=== PATIENT | female | born 1965 | race Caucasian/White ===

== ENCOUNTER 2016-07-04 13:06 | Emergency (ER) | payer BC ==
--- NOTE | 2016-07-04 16:14 | UC ---
Skin Complaint HPI - HPI Summary HPI Summary: pt presents with c/o of possible abscess on left distal dorsal side of foot. ~ 2 cm in diameter. 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 Denies injury or trauma. Pt has wound vac for bed sore obtained during recent hospitalization. Pt has liver failure secondary to ETOH cirrhosis. - History of Current Complaint Time Seen by Provider: 07/04/16 16:01 Stated Complaint: LEFT FOOT ABCESS Hx Obtained From: Patient Hx Last Menstrual Period: now ?: No Onset/Duration: Gradual Onset, Lasting Days Skin Exposure Onset/Duration: Days Ago Timing: Constant Onset Severity: Mild Current Severity: Mild Location: Discrete - left foot distal dorsal Character: Swelling, Redness, Raised Aggravating: Other - unable to feel pain in feet, neuropathy Alleviating: Nothing Associated Signs & Symptoms: Positive: Bruising - Allergy/Home Medications Allergies/Adverse Reactions: Allergies Allergy/AdvReac Type Severity Reaction Status Date / Time No Known Allergies Allergy Verified 07/04/16 16:22 Home Medications: Home Medications Folic Acid TAB* [Folvite TAB*] 1 mg PO BID 07/04/16 [History Confirmed 07/04/16] Furosemide TAB* [Lasix TAB*] 20 mg PO BID 07/04/16 [History Confirmed 07/04/16] Lactulose* 30 ml PO BID 07/04/16 [History Confirmed 07/04/16] Magnesium [Magnesium] 400 mg PO DAILY 07/04/16 [History Confirmed 07/04/16] RiFAXimin* [Xifaxan*] 550 mg PO BID 07/04/16 [History Confirmed 07/04/16] Spironolactone 50 mg PO DAILY 07/04/16 [History Confirmed 07/04/16] Tabavite 1 tab DAILY 07/04/16 [History] Review of Systems Constitutional: Negative Skin: Bruising, Other - edema, erytham, palpable "lump" Eyes: Negative ENT: Negative Respiratory: Negative Cardiovascular: Negative Gastrointestinal: Other - has cirrhosis Genitourinary: Negative Motor: Weakness - secondary to liver failure Neurovascular: Negative Musculoskeletal: Negative Neurological: Weakness, Other - neuropathy bilateral lower extremities from knee to toes, and neuropathy from elbows to finger tips Psychological: Negative All Other Systems Reviewed And Are Negative: Yes PMH/Surg Hx/FS Hx/Imm Hx Previously Healthy: No - liver failur Endocrine History Of: Denies: Diabetes, Thyroid Disease, Hyperthyroidism, Hypothyroidism, Dyslipidemia Cardiovascular History Of: Denies: Cardiac Disorders, Hypertension, Pacemaker/ICD, Myocardial Infarction , Congestive Heart Failure, Atrial Fibrillation, Deep Vein Thrombosis, Bleeding Disorders Respiratory History Of: Denies: COPD, Asthma, Bronchitis, Pneumonia, Pulmonary Embolism GI/ History Of: Denies: Gastroesophageal Reflux, Ulcer, Gastrointestinal Bleed, Gall Bladder Disease, Kidney Stones, Diverticulitis, Renal Disease, Urosepsis Neurological History Of: Denies: TIA, CVA, Dementia, Seizures, Migraine Psychological History Of: Reports: Anxiety, Depression Denies: Bipolar Disorder, Schizophrenia, Post Traumatic Stress Disorder Cancer History Of: Denies: Lung Cancer, Colorectal Cancer, Breast Cancer, Prostate Cancer, Cervical Cancer Other History Of: Negative For: HIV, Hepatitis B, Hepatitis C - Surgical History Surgical History: Yes Surgery Procedure, Year, and Place: rt hand surgery with plate 1997. L knee open repair age [id number]. Ectopic and appy 1989. eye at 1971(muscle surgery). L foot tumor 1981. tonsilectomy 1973. right hand surgery approx 1999 has plate in hand - Family History Known Family History: Negative: Cardiac Disease, Hypertension, Diabetes - Social History Lives: With Family Alcohol Use: None Substance Use Type: None Smoking Status (MU): Light Every Day Tobacco Smoker Type: Cigarettes Amount Used/How Often: less then 1/4 ppd - Immunization History Most Recent Tetanus Shot: Pt. states appros. six months ago (2016), through Asya Nuñez, her PCP. Physical Exam Triage Information Reviewed: Yes Appearance: Ill-Appearing, Thin Eye Exam: Normal ENT Exam: Normal Neck exam: Normal Respiratory: Positive: No respiratory distress Abdomen Description: Positive: Other: - pt has wound vac attached for bed sore obtrained during hospitalization previous to urgent care visit Musculoskeletal Exam: Normal Neurological Exam: Other Neurological: Positive: Other: - bialteral neuropathy in upper and lower extremities Psychological Exam: Normal - history of depression Skin Exam: Other - left dorsal side of foot. bruising, moveable soft, nontender mass. exam is limited secondary to history of neuropathy Course/Dx - Differential Diagnoses - Skin Complaint Differential Diagnoses: Abscess, MRSA, Other - contusion - Diagnoses Provider Diagnoses: abscess. contusion Discharge - Discharge Plan Condition: Stable Disposition: HOME Prescriptions: Cephalexin CAP* [Keflex 500 CAP*] 500 mg PO Q12H #14 cap Patient Education Materials: Foot Contusion (ED), Abscess (ED) Referrals: Caden CASTANO,Anh [Primary Care Provider] -
[2016-07-04 16:29] VITALS: BP 105/64
== END 2016-07-04 16:30 | disposition home or self-care (01) ==
LOC: UCCORT 13:06
DX: L02.612 Cutaneous abscess of left foot (principal); S90.32XA Contusion of left foot, initial encounter; X58.XXXA Exposure to other specified factors, initial encounter; Y93.9 Activity, unspecified; Y92.9 Unspecified place or not applicable; G62.9 Polyneuropathy, unspecified; K70.40 Alcoholic hepatic failure without coma; K70.30 Alcoholic cirrhosis of liver without ascites; F17.210 Nicotine dependence, cigarettes, uncomplicated
CPT/HCPCS: 99212; G0463

== ENCOUNTER 2018-07-04 16:47 | Emergency (ER) | payer SELFPAY ==
[2018-07-04 17:28] VITALS: BP 151/70
--- NOTE | 2018-07-04 17:35 | UC ---
Upper Extremity HPI - HPI Summary HPI Summary: Patient slipped on ice and fell landing on the posterior aspect of right elbow and humerus. she is having severe radiating pain up and down the ar, unable to move the elbow. - History of Current Complaint Chief Complaint: UCUpperExtremity Stated Complaint: RIGHT ARM INJURY S/P FALL Time Seen by Provider: 07/04/18 17:25 Hx Obtained From: Patient Hx Last Menstrual Period: now ?: No Onset/Duration: Sudden Onset, Lasting Minutes Severity Initially: Severe Severity Currently: Severe Pain Intensity: 10 Location Of Pain: Is Diffuse - right arm Character: Aching, Throbbing Aggravating Factor(s): Lifting, Flexion, Extension, Internal/External Rotation Alleviating Factor(s): Nothing Associated Signs And Symptoms: Positive: Swelling, Weakness, Numbness/Tingling Related History: Dominant Hand Right - Allergies/Home Medications Allergies/Adverse Reactions: Allergies Allergy/AdvReac Type Severity Reaction Status Date / Time No Known Allergies Allergy Verified 07/04/18 17:29 Home Medications: Home Medications oxyCODONE TAB* [Roxycodone TAB 5 mg*] 10 mg PO Q8H PRN 07/04/18 [History Confirmed 07/04/18] traZODone TAB* [Desyrel TAB*] 50 mg PO BEDTIME 07/04/18 [History Confirmed 07/04] PMH/Surg Hx/FS Hx/Imm Hx Previously Healthy: Yes Other History Of: Negative For: HIV, Hepatitis B, Hepatitis C - Surgical History Surgical History: Yes Surgery Procedure, Year, and Place: rt hand surgery with plate 1997. L knee open repair age [id number]. Ectopic and appy 1989. eye at 1970(muscle surgery). L foot tumor 1981. tonsilectomy 1973. right hand surgery approx 1999 has plate in hand - Family History Known Family History: Negative: Cardiac Disease, Hypertension, Diabetes - Social History Alcohol Use: Occasionally Alcohol Amount: denies Substance Use Type: None Smoking Status (MU): Light Every Day Tobacco Smoker Type: Cigarettes Amount Used/How Often: less then 1/4 ppd When Did the Patient Quit Smoking/Using Tobacco: 1 year - Immunization History Most Recent Influenza Vaccination: none Most Recent Tetanus Shot: Pt. states appros. six months ago (2015), through Asya Nuñez, her PCP. Review of Systems All Other Systems Reviewed And Are Negative: Yes Constitutional: Positive: Negative Skin: Positive: Negative Eyes: Positive: Negative ENT: Positive: Negative Respiratory: Positive: Negative Cardiovascular: Positive: Negative Gastrointestinal: Positive: Negative Genitourinary: Positive: Negative Motor: Positive: Negative Neurovascular: Positive: Negative Musculoskeletal: Positive: Arthralgia, Decreased ROM, Edema, Myalgia Neurological: Positive: Negative Psychological: Positive: Negative Is Patient Immunocompromised?: No Physical Exam Triage Information Reviewed: Yes Appearance: Well-Appearing, Well-Nourished, Pain Distress Vital Signs: Initial Vital Signs Temp 97.1 F 07/04/18 17:24 Pulse 75 07/04/18 17:24 Resp 18 07/04/18 17:24 BP 151/70 07/04/18 17:24 Pulse Ox 98 07/04/18 17:24 Vital Signs Reviewed: Yes Eye Exam: Normal ENT Exam: Normal Dental Exam: Normal Neck exam: Normal Respiratory Exam: Normal Respiratory: Positive: Chest non-tender, Lungs clear, Normal breath sounds Cardiovascular Exam: Normal Cardiovascular: Positive: RRR, No Murmur, Pulses Normal Abdominal Exam: Normal Bowel Sounds: Positive: Present Musculoskeletal: Positive: Strength Limited @, ROM Limited @ - due to pain and immobility, 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 albina and sling applied, referred to Ortho, Patient currently sees Lyric Gipson in ortho practice locally. Patient has pain medication at home, states she is not in need of any at this time. albina and sling provided. Recommend Ice and follow up first thing Friday. - Differential Dx/Diagnosis Differential Diagnosis/HQI/PQRI: Contusion, Fracture (Closed), Strain, Sprain Provider Diagnosis: Right radial head fracture Discharge - Sign-Out/Discharge Documenting (check all that apply): Patient Departure All imaging exams completed and their final reports reviewed: No Studies - Discharge Plan Condition: Stable Disposition: HOME Patient Education Materials: Elbow Fracture (ED) Referrals: Vivienne Woodruff MD [Primary Care Provider] - Mihai Don MD [Medical Doctor] - Additional Instructions: 1. wear the albina and sling continuously. 2. Ice for the nex 2 days to help with pain and swelling 3. Use your current pain medication as needed. 4. Follow up with your ortho first thing Friday morning. I also included the name of Dr Don, who can help if you are unable to get an appointment. 5. If you develop any severe increase in pain, you develop numbness not relieved by repositioning, or cool blue fingers please report to ER. - Billing Disposition and Condition Condition: STABLE Disposition: Home - Attestation Statements Provider Attestation: I was available for consult. This patient was seen by the JUANA. The patient was not presented to, seen by, or examined by me. EK
== END 2018-07-04 19:03 | disposition home or self-care (01) ==
LOC: UCCORT 16:47
DX: S52.124A Nondisplaced fracture of head of right radius, initial encounter for closed fracture (principal); W00.0XXA Fall on same level due to ice and snow, initial encounter; Y92.9 Unspecified place or not applicable; F17.210 Nicotine dependence, cigarettes, uncomplicated
CPT/HCPCS: 99213; G0463

== ENCOUNTER 2020-05-28 20:48 | Inpatient (IN) ==
[2020-05-28] MEDS ORDERED: NS 0.9% 1000 ml BAG 1,000 ML IV ONE (21:28)
[2020-05-28] MEDS ORDERED: Pantoprazole 80 mg in NS BAG 80 MG/250 ML BAG IV ONE (21:30)
[2020-05-28] MEDS ORDERED: Ondansetron 4 mg VIAL 2 MG/ML 2 ml VIAL ONE (22:20)
[2020-05-28] MEDS ORDERED: Ondansetron 4 mg VIAL 2 MG/ML 2 ml VIAL IV ONE (22:20)
[2020-05-28] MEDS ORDERED: NS 0.9% 1000 ml BAG 1,000 ML IV SCH (23:00)
[2020-05-28] MEDS ORDERED: Octreotide Acetate 50 MCG in NS 0.9% 50 ML IV ONE (23:00)
[2020-05-28] MEDS ORDERED: Octreotide Acetate 500 MCG in NS 0.9% 100 ml BAG 100 ML IV SCH ×2 (23:00→23:30)
[2020-05-29 00:45] LABS: INR 1.42 (0.82-1.09)
[2020-05-29 00:55] LABS: Albumin/Globulin Ratio 0.9 (1-3); BUN/Creatinine Ratio 4.8 (8-20); C Reactive Protein 3.86 mg/L (<8.01); Calcium 7.7 mg/dL (8.6-10.3); EGFR African American 67.1 (>60); EGFR Non-African American 55.4 (>60); Globulin 3.4 g/dL (2-4); Potassium 3.3 mmol/L (3.5-5.0); Total Protein 6.4 g/dL (6.4-8.9)
[2020-05-29 00:56] LABS: Acetaminophen < 15 mcg/mL; Alcohol, S 72 mg/dL (<10); Troponin I 0.01 ng/mL (<0.03)
[2020-05-29] MEDS ORDERED: Thiamine 100 MG/ML 2 ml VIAL (200 mg) IM ONE (01:04)
[2020-05-29] MEDS ORDERED: NS 0.9% 1000 ml BAG 1,000 ML IV ONE ×2 (01:05→01:30)
[2020-05-29 01:10] LABS: ABS Lymphocytes 0.6 10^3/ul (1.0-4.8); ABS Monocytes 0.3 10^3/ul (0-0.8); ABS Neutrophils 3.3 10^3/ul (1.5-7.7); Hematocrit 32 % (35-47); Hemoglobin 11.1 g/dL (12.0-16.0); Lymphocyte % 13.6 %; Mean Corpuscular HGB Conc 34 g/dL (31-36); Mean Corpuscular Hemoglobin 35 pg (27-31); Mean Corpuscular Volume 101 fL (80-97); Red Blood Count 3.21 10^6 /uL (3.70-4.87); Red Cell Distribution Width 16 % (10-15); White Blood Count 4.1 10^3/uL (3.5-10.8)
[2020-05-29 01:29] LABS: Mean Platelet Volume 8.9 fL (7.4-10.4); Platelet Count 40 10^3/uL (150-450)
[2020-05-29 01:33] LABS: Influenza A Molecular Negative (Negative); Influenza B Molecular Negative (Negative)
[2020-05-29] MEDS ORDERED: Multivitamins/Minerals TAB PO SCH (02:00)
[2020-05-29] MEDS: Ondansetron 4 mg VIAL 2 MG/ML 2 ml VIAL IV PRN (02:10)
[2020-05-29] MEDS: KCL 20 MEQ/100 ML IVPREMIX 20 MEQ/100 ML BAG IV SCH ×4 (03:18→18:11)
[2020-05-29] MEDS: NS 0.9% 1000 ml BAG 1,000 ML IV SCH ×2 (03:19→05:50)
[2020-05-29 03:56] LABS: Albumin 2.7 g/dL (3.2-5.2); Albumin/Globulin Ratio 0.9 (1-3); BUN/Creatinine Ratio 4.2 (8-20); Calcium 7.2 mg/dL (8.6-10.3); EGFR African American 73.6 (>60); EGFR Non-African American 60.8 (>60); Globulin 2.9 g/dL (2-4); Magnesium 1.2 mg/dL (1.9-2.7); Potassium 3.4 mmol/L (3.5-5.0); Total Bilirubin 7.2 mg/dL (0.2-1.0); Total Protein 5.6 g/dL (6.4-8.9)
[2020-05-29 04:09] LABS: ABS Lymphocytes 0.4 10^3/ul (1.0-4.8); ABS Monocytes 0.3 10^3/ul (0-0.8); ABS Neutrophils 2.9 10^3/ul (1.5-7.7); Hematocrit 29 % (35-47); Hemoglobin 9.8 g/dL (12.0-16.0); Lymphocyte % 12.1 %; Mean Corpuscular HGB Conc 34 g/dL (31-36); Mean Corpuscular Hemoglobin 34 pg (27-31); Mean Corpuscular Volume 101 fL (80-97); Mean Platelet Volume 8.8 fL (7.4-10.4); Platelet Count 30 10^3/uL (150-450); Red Blood Count 2.84 10^6 /uL (3.70-4.87); Red Cell Distribution Width 16 % (10-15); White Blood Count 3.6 10^3/uL (3.5-10.8)
[2020-05-29 04:21] LABS: Folate 17.87 ng/mL (>3.99)
[2020-05-29] MEDS ORDERED: Piperacillin/Tazobac ADVAN 3.375 GM in NS 0.9% 100 ml BAG 100 ML IV ONE (04:43)
[2020-05-29] MEDS ORDERED: Thiamine 100 MG/ML 2 ml VIAL 500 MG in NS 0.9% 250 ml 250 ML IV ONE ×2 (04:56→08:00)
[2020-05-29] MEDS ORDERED: Lactated Ringers 1000 ml BAG 1,000 ML IV ONE (04:59)
[2020-05-29] MEDS ORDERED: KCL 10 MEQ/50 ML IVPREMIX 10 MEQ/50 ML BAG IV SCH (05:00)
[2020-05-29] MEDS ORDERED: Albumin Human 25% 25 GM/100 ML BTL IV SCH (05:00)
[2020-05-29] MEDS ORDERED: KCL 20 MEQ/100 ML IVPREMIX 20 MEQ/100 ML BAG IV SCH (05:00)
[2020-05-29] MEDS ORDERED: Zosyn per Pharmacy NOTE FOLLOW UP SCH (05:00)
[2020-05-29] MEDS ORDERED: Sodium Bicarb 8.4% Vial 50 ML 150 MEQ in D5W 1000 ml BAG 850 ML IV SCH (05:00)
[2020-05-29] MEDS ORDERED: Iohexol 300 (CONTRAST) 10 ML SDV IV ONE (05:16)
[2020-05-29] MEDS ORDERED: KCL 20 MEQ/100 ML IVPREMIX 20 MEQ/100 ML BAG ONE (05:55)
[2020-05-29] MEDS ORDERED: Vancomycin per Pharmacy 1 EA NOTE FOLLOW UP SCH (06:00)
[2020-05-29] MEDS ORDERED: Octreotide Acetate 500 MCG in NS 0.9% 100 ml BAG 100 ML IV SCH (06:00)
[2020-05-29] MEDS ORDERED: KCL 20 MEQ/100 ML IVPREMIX 20 MEQ/100 ML BAG IV ONE (06:00)
[2020-05-29] MEDS ORDERED: Vancomycin 1,500 MG in NS 0.9% 250 ml 250 ML IVPB ONE (06:30)
[2020-05-29] MEDS ORDERED: Vancomycin 1,250 MG in NS 0.9% 250 ml 250 ML IVPB ONE (06:30)
[2020-05-29] MEDS: Magnesium Sulf 4 GM/100 ML IV 4,000 MG/100 ML BAG IVPB ONE ×2 (06:44→07:45)
[2020-05-29 06:46] LABS: Urine Appearance Clear; Urine Bilirubin Negative (Negative); Urine Blood Negative (Negative); Urine Color Amber; Urine Glucose Negative (Negative); Urine Ketones Trace (Negative); Urine Nitrite Negative (Negative); Urine Protein Negative (Negative); Urine Specific Gravity 1.019 (1.010-1.030); Urine Urobilinogen Negative (Negative)
[2020-05-29 06:48] LABS: ABS Lymphocytes 0.8 10^3/ul (1.0-4.8); ABS Monocytes 0.4 10^3/ul (0-0.8); ABS Neutrophils 2.1 10^3/ul (1.5-7.7); Hematocrit 26 % (35-47); Hemoglobin 8.9 g/dL (12.0-16.0); Lymphocyte % 23.3 %; Mean Corpuscular HGB Conc 34 g/dL (31-36); Mean Corpuscular Hemoglobin 34 pg (27-31); Mean Corpuscular Volume 100 fL (80-97); Mean Platelet Volume 8.9 fL (7.4-10.4); Nucleated Red Blood Cells % 0.1; Platelet Count 29 10^3/uL (150-450); Red Blood Count 2.59 10^6 /uL (3.70-4.87); Red Cell Distribution Width 15 % (10-15); White Blood Count 3.2 10^3/uL (3.5-10.8)
[2020-05-29] MEDS ORDERED: FOLIC ACID IV ONE (07:00)
[2020-05-29] MEDS ORDERED: MULTIPLE VITAMIN IV ONE (07:00)
[2020-05-29] MEDS ORDERED: THIAMINE IV ONE (07:00)
[2020-05-29 07:03] LABS: Albumin 2.5 g/dL (3.2-5.2); Albumin/Globulin Ratio 0.9 (1-3); BUN/Creatinine Ratio 5.3 (8-20); Calcium 6.9 mg/dL (8.6-10.3); EGFR African American 74.5 (>60); EGFR Non-African American 61.5 (>60); Globulin 2.7 g/dL (2-4); Potassium 3.8 mmol/L (3.5-5.0); Total Bilirubin 6.8 mg/dL (0.2-1.0); Total Protein 5.2 g/dL (6.4-8.9)
[2020-05-29] MEDS: Lactated Ringers 1000 ml BAG 500 ML IV ONE ×2 (07:40→12:25)
[2020-05-29] MEDS: Pantoprazole 80 mg in NS BAG 80 MG/250 ML BAG IV SCH ×4 (07:46→19:59)
[2020-05-29 08:07] LABS: INR 1.61 (0.82-1.09)
[2020-05-29] MEDS ORDERED: Folic Acid 1 mg SYRINGE 0.2 ML SYRINGE IV SCH (09:00)
[2020-05-29] MEDS ORDERED: Norepinephrine 16MCG/ML IVPRE 4,000 MCG/250 ML BAG IV ONE (09:32)
[2020-05-29 09:38] LABS: Magnesium 1.1 mg/dL (1.9-2.7)
[2020-05-29] MEDS ORDERED: Norepinephrine 16MCG/ML IVPRE 4,000 MCG/250 ML BAG IV SCH (10:00)
[2020-05-29] MEDS ORDERED: Succinylcholine 200 mg VIAL 20 mg/ml 10 ml VIAL (200 mg) ONE (10:15)
[2020-05-29] MEDS ORDERED: Propofol 10 mg/ml 100 ML BTL 0 ML ONE (10:15)
[2020-05-29] MEDS ORDERED: Rocuronium 50 mg VIAL 10 mg/ml 5 ml VIAL (50 mg) ONE (10:15)
[2020-05-29] MEDS: Octreotide Acetate 500 MCG in NS 0.9% 100 ml BAG 100 ML IV SCH ×2 (11:04→19:05)
[2020-05-29] MEDS ORDERED: cefTRIAXone 1 gm/50 mL NS BAG 1 GM/50 ML BAG IVPB SCH (12:00)
[2020-05-29] MEDS: Remdesivir 5 MG/ML LIQ IV Vial 100 MG in NS 0.9% 250 ml 230 ML IV SCH (12:14)
[2020-05-29 13:04] LABS: Hematocrit 27 % (35-47); Hemoglobin 9.2 g/dL (12.0-16.0); Mean Corpuscular HGB Conc 35 g/dL (31-36); Mean Corpuscular Hemoglobin 35 pg (27-31); Mean Corpuscular Volume 100 fL (80-97); Mean Platelet Volume 8.4 fL (7.4-10.4); Platelet Count 31 10^3/uL (150-450); Red Blood Count 2.68 10^6 /uL (3.70-4.87); Red Cell Distribution Width 16 % (10-15)
[2020-05-29 13:10] LABS: BUN/Creatinine Ratio 5.3 (8-20); Calcium 6.9 mg/dL (8.6-10.3); EGFR African American 75.4 (>60); EGFR Non-African American 62.3 (>60); Magnesium 2.5 mg/dL (1.9-2.7); Phosphorus 2.8 mg/dL (2.5-5.0); Potassium 3.5 mmol/L (3.5-5.0)
[2020-05-29] MEDS: ZOSYN 3.375 GM Q8H per EXTENDED INFUSION IV SCH ×2 (13:49→19:45)
[2020-05-29] MEDS: Vancomycin 750 MG in NS 0.9% 250 ML IVPB SCH (17:54)
[2020-05-29] MEDS: Norepinephrine 16MCG/ML IVPRE 4,000 MCG/250 ML BAG IV SCH (18:34)
[2020-05-30] MEDS: Vancomycin 750 MG in NS 0.9% 250 ML IVPB SCH ×3 (00:35→21:42)
[2020-05-30] MEDS: ZOSYN 3.375 GM Q8H per EXTENDED INFUSION IV SCH ×3 (04:24→20:27)
[2020-05-30] MEDS: Norepinephrine 16MCG/ML IVPRE 4,000 MCG/250 ML BAG IV SCH (05:03)
[2020-05-30 05:19] LABS: Albumin 2.4 g/dL (3.2-5.2); BUN/Creatinine Ratio 4.2 (8-20); Calcium 6.9 mg/dL (8.6-10.3); EGFR African American 74.5 (>60); EGFR Non-African American 61.5 (>60); Globulin 2.5 g/dL (2-4); Magnesium 2.1 mg/dL (1.9-2.7); Phosphorus 1.1 mg/dL (2.5-5.0); Potassium 3.5 mmol/L (3.5-5.0); Total Protein 4.9 g/dL (6.4-8.9)
[2020-05-30 05:22] LABS: ABS Eosinophils 0.1 10^3/ul (0-0.6); ABS Lymphocytes 0.7 10^3/ul (1.0-4.8); ABS Monocytes 0.3 10^3/ul (0-0.8); ABS Neutrophils 2.5 10^3/ul (1.5-7.7); Eosinophil % 2.1 %; Hematocrit 27 % (35-47); Hemoglobin 9.3 g/dL (12.0-16.0); Lymphocyte % 19.7 %; Mean Corpuscular HGB Conc 34 g/dL (31-36); Mean Corpuscular Hemoglobin 35 pg (27-31); Mean Corpuscular Volume 101 fL (80-97); Nucleated Red Blood Cells % 0.1; Platelet Count 29 10^3/uL (150-450); Red Blood Count 2.69 10^6 /uL (3.70-4.87); Red Cell Distribution Width 16 % (10-15); White Blood Count 3.7 10^3/uL (3.5-10.8)
[2020-05-30] MEDS: Octreotide Acetate 500 MCG in NS 0.9% 100 ml BAG 100 ML IV SCH ×2 (05:34→15:32)
[2020-05-30] MEDS: Pantoprazole 80 mg in NS BAG 80 MG/250 ML BAG IV SCH (05:54)
[2020-05-30] MEDS ORDERED: Potassium Phosphate IV 15 MMOLE in NS 0.9% 250 ml 250 ML IVPB ONE ×2 (06:30→23:13)
[2020-05-30 08:12] LABS: INR 1.48 (0.82-1.09)
[2020-05-30] MEDS ORDERED: Vancomycin Trough Check NOTE FOLLOW UP ONE (09:00)
[2020-05-30] MEDS ORDERED: Thiamine 100 MG/ML 2 ml VIAL (200 mg) IV SCH (09:00)
[2020-05-30] MEDS: Potassium & Sodium Phos 250 mg = 1 PACKET PO SCH ×2 (11:58→20:04)
[2020-05-30] MEDS: Remdesivir 5 MG/ML LIQ IV Vial 100 MG in NS 0.9% 250 ml 230 ML IV SCH (12:46)
[2020-05-30] MEDS: Pantoprazole VIAL 40 MG VIAL IV SCH (20:04)
[2020-05-30 20:30] LABS: Hematocrit 25 % (35-47); Mean Corpuscular HGB Conc 36 g/dL (31-36); Mean Corpuscular Hemoglobin 36 pg (27-31); Mean Corpuscular Volume 100 fL (80-97); Platelet Count 25 10^3/uL (150-450); Red Blood Count 2.54 10^6 /uL (3.70-4.87); Red Cell Distribution Width 16 % (10-15); White Blood Count 2.8 10^3/uL (3.5-10.8)
[2020-05-30 20:49] LABS: Albumin 2.5 g/dL (3.2-5.2); BUN/Creatinine Ratio 3.2 (8-20); EGFR African American 75.4 (>60); EGFR Non-African American 62.3 (>60); Globulin 2.5 g/dL (2-4); Magnesium 1.8 mg/dL (1.9-2.7); Phosphorus 1.3 mg/dL (2.5-5.0); Potassium 3.5 mmol/L (3.5-5.0); Total Bilirubin 6.6 mg/dL (0.2-1.0)
[2020-05-30] MEDS ORDERED: Magnesium Sulfate 2 gm BAG 2 GM/50 ML BAG IVPB ONE (23:12)
[2020-05-30] MEDS: Ondansetron 4 mg VIAL 2 MG/ML 2 ml VIAL IV PRN (23:22)
[2020-05-31] MEDS ORDERED: Octreotide Acetate 500 MCG in NS 0.9% 100 ml BAG 100 ML IV SCH (01:00)
[2020-05-31] MEDS: Octreotide Acetate 500 MCG in NS 0.9% 100 ml BAG 100 ML IV SCH ×2 (01:36→12:03)
[2020-05-31] MEDS: ZOSYN 3.375 GM Q8H per EXTENDED INFUSION IV SCH ×3 (04:26→22:51)
[2020-05-31 04:56] LABS: ABS Lymphocytes 0.4 10^3/ul (1.0-4.8); ABS Monocytes 0.1 10^3/ul (0-0.8); ABS Neutrophils 1.8 10^3/ul (1.5-7.7); Eosinophil % 1.2 %; Hematocrit 27 % (35-47); Hemoglobin 9.2 g/dL (12.0-16.0); Lymphocyte % 15.3 %; Mean Corpuscular HGB Conc 34 g/dL (31-36); Mean Corpuscular Hemoglobin 34 pg (27-31); Mean Corpuscular Volume 99 fL (80-97); Mean Platelet Volume 9.1 fL (7.4-10.4); Nucleated Red Blood Cells % 0.2; Platelet Count 26 10^3/uL (150-450); Red Blood Count 2.71 10^6 /uL (3.70-4.87); Red Cell Distribution Width 15 % (10-15); White Blood Count 2.3 10^3/uL (3.5-10.8)
[2020-05-31 05:11] LABS: Albumin 2.6 g/dL (3.2-5.2); Albumin/Globulin Ratio 0.9 (1-3); BUN/Creatinine Ratio 3.5 (8-20); Calcium 6.9 mg/dL (8.6-10.3); EGFR African American 84.7 (>60); Globulin 2.9 g/dL (2-4); Magnesium 2.4 mg/dL (1.9-2.7); Phosphorus 2.9 mg/dL (2.5-5.0); Total Bilirubin 7.3 mg/dL (0.2-1.0); Total Protein 5.5 g/dL (6.4-8.9)
[2020-05-31] MEDS ORDERED: CALCIUM GLUCONATE 1GM/50ML NS 1 GM/50 ML BAG IV ONE (08:46)
[2020-05-31] MEDS: Ondansetron 4 mg VIAL 2 MG/ML 2 ml VIAL IV PRN ×2 (08:58→18:56)
[2020-05-31] MEDS: Pantoprazole VIAL 40 MG VIAL IV SCH ×2 (08:58→22:49)
[2020-05-31] MEDS: Vancomycin 750 MG in NS 0.9% 250 ML IVPB SCH (09:39)
[2020-05-31] MEDS: Potassium & Sodium Phos 250 mg = 1 PACKET PO SCH ×2 (09:57→22:56)
[2020-05-31] MEDS: Multivitamins/Minerals TAB PO SCH (09:57)
[2020-05-31] MEDS ORDERED: [UNRECOGNIZED DRUG - OTHER] IV SCH (12:00)
[2020-05-31] MEDS ORDERED: ZOSYN 3.375 GM IV SCH (12:00)
[2020-05-31] MEDS: Remdesivir 5 MG/ML LIQ IV Vial 100 MG in NS 0.9% 250 ml 230 ML IV SCH (12:57)
[2020-06-01] MEDS: ZOSYN 3.375 GM Q8H per EXTENDED INFUSION IV SCH ×3 (04:09→20:44)
[2020-06-01] MEDS: Ondansetron 4 mg VIAL 2 MG/ML 2 ml VIAL IV PRN ×3 (04:09→17:02)
[2020-06-01 04:53] LABS: ABS Lymphocytes 0.3 10^3/ul (1.0-4.8); ABS Monocytes 0.2 10^3/ul (0-0.8); ABS Neutrophils 2.5 10^3/ul (1.5-7.7); Albumin 2.7 g/dL (3.2-5.2); BUN/Creatinine Ratio 6.4 (8-20); Calcium 7.6 mg/dL (8.6-10.3); EGFR African American 93.5 (>60); EGFR Non-African American 77.3 (>60); Eosinophil % 0.1 %; Globulin 2.8 g/dL (2-4); Hematocrit 26 % (35-47); Hemoglobin 8.8 g/dL (12.0-16.0); Lymphocyte % 10.9 %; Mean Corpuscular HGB Conc 34 g/dL (31-36); Mean Corpuscular Hemoglobin 34 pg (27-31); Mean Corpuscular Volume 99 fL (80-97); Mean Platelet Volume 9.1 fL (7.4-10.4); Nucleated Red Blood Cells % 0.2; Phosphorus 2.3 mg/dL (2.5-5.0); Platelet Count 30 10^3/uL (150-450); Potassium 3.8 mmol/L (3.5-5.0); Red Cell Distribution Width 16 % (10-15); Total Protein 5.5 g/dL (6.4-8.9)
[2020-06-01] MEDS ORDERED: Vancomycin Trough Check NOTE FOLLOW UP ONE (08:30)
[2020-06-01] MEDS: Pantoprazole VIAL 40 MG VIAL IV SCH ×2 (09:20→20:47)
[2020-06-01] MEDS: Potassium & Sodium Phos 250 mg = 1 PACKET PO SCH ×2 (09:25→20:45)
[2020-06-01] MEDS: Multivitamins/Minerals TAB PO SCH (09:25)
[2020-06-01] MEDS: Prochlorperazine 5 mg/ml 2 ml VIAL (10 mg) IV PRN ×2 (12:09→20:47)
[2020-06-01] MEDS: Remdesivir 5 MG/ML LIQ IV Vial 100 MG in NS 0.9% 250 ml 230 ML IV SCH (12:34)
[2020-06-02] MEDS: Ondansetron 4 mg VIAL 2 MG/ML 2 ml VIAL IV PRN (00:11)
[2020-06-02] MEDS: ZOSYN 3.375 GM Q8H per EXTENDED INFUSION IV SCH ×2 (05:00→13:37)
[2020-06-02 06:14] LABS: INR 2.12 (0.82-1.09)
[2020-06-02 06:20] LABS: ABS Lymphocytes 0.5 10^3/ul (1.0-4.8); ABS Monocytes 0.3 10^3/ul (0-0.8); ABS Neutrophils 2.1 10^3/ul (1.5-7.7); Eosinophil % 1.2 %; Hematocrit 25 % (35-47); Hemoglobin 8.6 g/dL (12.0-16.0); Lymphocyte % 16.8 %; Mean Corpuscular HGB Conc 35 g/dL (31-36); Mean Corpuscular Hemoglobin 35 pg (27-31); Mean Corpuscular Volume 100 fL (80-97); Mean Platelet Volume 8.3 fL (7.4-10.4); Nucleated Red Blood Cells % 0.3; Platelet Count 34 10^3/uL (150-450); Red Blood Count 2.48 10^6 /uL (3.70-4.87); Red Cell Distribution Width 16 % (10-15)
[2020-06-02 06:22] LABS: Albumin 2.7 g/dL (3.2-5.2); BUN/Creatinine Ratio 8.2 (8-20); Calcium 8.2 mg/dL (8.6-10.3); EGFR African American 72.7 (>60); EGFR Non-African American 60.1 (>60); Globulin 2.6 g/dL (2-4); Magnesium 1.8 mg/dL (1.9-2.7); Potassium 3.4 mmol/L (3.5-5.0); Total Protein 5.3 g/dL (6.4-8.9)
[2020-06-02] MEDS: Pantoprazole VIAL 40 MG VIAL IV SCH ×2 (08:22→21:23)
[2020-06-02] MEDS: Multivitamins/Minerals TAB PO SCH (08:23)
[2020-06-02] MEDS: Potassium & Sodium Phos 250 mg = 1 PACKET PO SCH ×2 (08:24→21:24)
[2020-06-02 12:08] LABS: Phosphorus 1.8 mg/dL (2.5-5.0)
[2020-06-02] MEDS: Remdesivir 5 MG/ML LIQ IV Vial 100 MG in NS 0.9% 250 ml 230 ML IV SCH (12:32)
[2020-06-02] MEDS ORDERED: Magnesium Sulfate IV 1GM/100ML 1 GM/100 ML BAG IV ONE (15:29)
[2020-06-03 06:34] LABS: Albumin 2.8 g/dL (3.2-5.2); BUN/Creatinine Ratio 9.2 (8-20); Calcium 8.5 mg/dL (8.6-10.3); EGFR African American 82.4 (>60); EGFR Non-African American 68.1 (>60); Globulin 2.8 g/dL (2-4); Magnesium 1.7 mg/dL (1.9-2.7); Phosphorus 2.2 mg/dL (2.5-5.0); Potassium 3.5 mmol/L (3.5-5.0); Total Bilirubin 8.1 mg/dL (0.2-1.0); Total Protein 5.6 g/dL (6.4-8.9)
[2020-06-03 06:45] LABS: INR 1.95 (0.82-1.09)
[2020-06-03 06:46] LABS: ABS Lymphocytes 0.5 10^3/ul (1.0-4.8); ABS Monocytes 0.4 10^3/ul (0-0.8); ABS Neutrophils 2.9 10^3/ul (1.5-7.7); Eosinophil % 0.2 %; Hematocrit 26 % (35-47); Hemoglobin 8.9 g/dL (12.0-16.0); Lymphocyte % 13.1 %; Mean Corpuscular HGB Conc 35 g/dL (31-36); Mean Corpuscular Hemoglobin 35 pg (27-31); Mean Corpuscular Volume 100 fL (80-97); Mean Platelet Volume 8.7 fL (7.4-10.4); Nucleated Red Blood Cells % 0.3; Platelet Count 34 10^3/uL (150-450); Red Blood Count 2.55 10^6 /uL (3.70-4.87); Red Cell Distribution Width 16 % (10-15); White Blood Count 3.8 10^3/uL (3.5-10.8)
[2020-06-03] MEDS: Pantoprazole VIAL 40 MG VIAL IV SCH (10:42)
[2020-06-03] MEDS: Potassium & Sodium Phos 250 mg = 1 PACKET PO SCH (10:43)
[2020-06-03] MEDS: Multivitamins/Minerals TAB PO SCH (10:46)
[2020-06-03 14:15] VITALS: BP 106/59
[2020-06-04] MEDS ORDERED: Pantoprazole VIAL 40 MG VIAL IV SCH (09:00)
== END 2020-06-03 16:39 | disposition home or self-care (01) | DRG 177 ==
LOC: MED 20:48 → ED 20:48 → OBSVTOIN 23:22 → ICU 05-29 00:53 → MED 05-31 15:23
PROVIDERS: ADMIT Internal Medicine; ATTEND Internal Medicine